=== PATIENT | male | born 1950 | race African-American/Black ===

== ENCOUNTER 2020-05-07 05:33 | Emergency (ER) | payer OTHER ==
[~2020-05-07] VITALS: Ht 185.4 cm; Wt 77.0 kg
[2020-05-07 10:28] VITALS: BP 143/78
== END 2020-05-07 11:08 | disposition home or self-care (01) ==
LOC: ER 05:33
DX: Z04.89 Encounter for examination and observation for other specified reasons (principal); I69.320 Aphasia following cerebral infarction; I10 Essential (primary) hypertension; Z93.0 Tracheostomy status; Z93.3 Colostomy status
CPT/HCPCS: 99283

== ENCOUNTER 2022-01-05 12:30 | Emergency (ER) | payer OTHER ==
[~2022-01-05] VITALS: Ht 172.7 cm; Wt 90.7 kg
[2022-01-05] MEDS ORDERED: CEFTRIAXONE 1 G PREMIX 50 ML IV ONE (13:30)
[2022-01-05] MEDS ORDERED: VANCOMYCIN 1G PREMIX 200 ML IV SCH (13:30)
[2022-01-05] MEDS ORDERED: ACETAMINOPHEN 650MG SUPP PR ONE (13:30)
[2022-01-05] MEDS ORDERED: SODIUM CHLORIDE 0.9% 1,000 ML IV ONE (13:45)
[2022-01-05 14:50] LABS: CHLORIDE 108 mEq/L (98-107)
[2022-01-05 14:52] LABS: HEMATOCRIT. 31.3 % (42.0-52.0); MEAN CORPUSCULAR HEMOGLOBIN 32.9 pg (28.0-32.0); MEAN CORPUSCULAR VOLUME 103.1 fL (80.0-94.0); MEAN PLATELET VOLUME 8.4 fl (7.4-10.4); PLATELET 147 x1000/uL (130-400); RED BLOOD CELL COUNT 3.03 mill/uL (4.7-6.1); RED CELL DISTRIBUTION WIDTH 12.4 % (11.6-14.6)
[2022-01-05] MEDS ORDERED: CEFTRIAXONE 1 G PREMIX 50 ML IV NR (15:15)
[2022-01-05] MEDS ORDERED: VANCOMYCIN 1GM PMX (XELLIA) 200 ML IV NR (15:30)
[2022-01-05 16:55] LABS: CLARITY URINE TURBID (CLEAR); COLOR URINE YELLOW (YELLOW); KETONES URINE TRACE (NEGATIVE); LEUKOCYTE ESTERASE URINE 3+ (NEGATIVE); NITRITE URINE POSITIVE (NEGATIVE); OCCULT BLOOD URINE NEGATIVE (NEGATIVE); PROTEIN URINE 1+ (NEGATIVE); SPECIFIC GRAVITY URINE 1.019 (1.005-1.030)
[2022-01-05 18:01] LABS: PLATELET ESTIMATE NORMAL
[2022-01-05 18:41] VITALS: BP 162/70
== END 2022-01-05 19:03 | disposition short-term general hospital (02) ==
LOC: ER 12:30 → CANBEDREQ 19:59
DX: A41.9 Sepsis, unspecified organism (principal); R65.20 Severe sepsis without septic shock; N39.0 Urinary tract infection, site not specified; I10 Essential (primary) hypertension; Z20.822 Contact with and (suspected) exposure to COVID-19; Z90.49 Acquired absence of other specified parts of digestive tract; Z86.73 Personal history of transient ischemic attack (TIA), and cerebral infarction without residual deficits
CPT/HCPCS: 36415; 71045; 80053; 81003; 83605; 83690; 83880; 84484; 85025; 87040; 87077; 87086; 87186; 87426; 93005; 96361; 96365; 96366; 96368; 99285; C9803; J0696; J3370; J7030

== ENCOUNTER 2022-07-03 10:41 | Emergency (ER) | payer OTHER ==
[~2022-07-03] VITALS: Ht 167.6 cm; Wt 69.0 kg
[2022-07-03 16:00] VITALS: BP 133/60
== END 2022-07-03 17:22 | disposition home or self-care (01) ==
LOC: ER 10:41
DX: J95.03 Malfunction of tracheostomy stoma (principal); I10 Essential (primary) hypertension; Z86.73 Personal history of transient ischemic attack (TIA), and cerebral infarction without residual deficits
CPT/HCPCS: 32551; 71045; 99283; 99284

== ENCOUNTER 2024-12-14 23:40 | Inpatient (IN) | payer OTHER ==
[~2024-12-14] VITALS: Ht 180.3 cm; Wt 69.9 kg
[2024-12-15] VITALS (9 sets, daily range): BP systolic 124–150; BP diastolic 66–86; PULSE 64–80; RESP 15–22; TEMP 36.4–37.0296; O2SAT 96–99
[2024-12-15] MEDS ORDERED: VANCOMYCIN 1G PREMIX 200 ML IV ONE (01:00)
[2024-12-15 01:18] LABS: BG BASE EXCESS 3.2 mmol/L (-2.0-3.0); BG CARBOXYHEMOGLOBIN 0.8 % (0.5-1.5); BG DEOXYHEMOGLOBIN 6.4 % (0.0-5.0); BG HCO3 ACT 28.4 mmol/L (21.0-28.0); BG METHEMOGLOBIN 0.0 % (0.5-1.5); BG OXYGEN SATURATION 93.5 % (94.0-98.0); BG OXYHEMOGLOBIN 92.8 % (94.0-98.0); BG PCO2 45.7 mmHg (35.0-48.0); BG PH 7.412 (7.350-7.450); BG PO2 68.3 mmHg (83.0-108.0); BG SAMPLE SITE RIGHT RADIAL; BG TOTAL HEMOGLOBIN 13.9 g/dL (13.5-17.5); BG VENT MODE ROOM AIR
[2024-12-15] MEDS: SODIUM CHLORIDE 0.9% (SEPSIS BOLUS) IV ONE (02:12)
[2024-12-15] MEDS: PIPERACILLIN/TAZO 3.375G/50ML 50 ML IV ONE (02:13)
[2024-12-15 02:24] LABS: BASOPHILS % 0.2 % (0.0-2.0); EOSINOPHILS % 1.5 % (0.0-5.0); HEMATOCRIT. 41.4 % (42.0-52.0); HEMOGLOBIN. 13.9 g/dL (14.0-18.0); LYMPHOCYTES % 16.9 % (20.0-50.0); MEAN PLATELET VOLUME 9.4 fl (7.4-10.4); MONOCYTES % 2.9 % (2.0-8.0); NEUTROPHILS % 78.5 % (40.0-76.0); PLATELET 132 x1000/uL (130-400); RED BLOOD CELL COUNT 4.37 mill/uL (4.7-6.1); RED CELL DISTRIBUTION WIDTH 12.6 % (11.6-14.6)
[2024-12-15 03:11] LABS: CREATININE 1.1 mg/dL (0.6-1.3); TROPONIN I HIGH SENSITIVITY 8 ng/L (3.0-53); UREA NITROGEN BLOOD 17 mg/dL (9-23)
[2024-12-15 03:13] LABS: ASPARTATE AMINOTRANSFERASE 25 IU/L (<34); BILIRUBIN DIRECT 0.2 mg/dL (<=3.0); BILIRUBIN TOTAL 0.5 mg/dL (0.1-1.0); PROTEIN TOTAL 9.7 g/dL (6.0-8.3)
[2024-12-15] MEDS: VANCOMYCIN 1G PREMIX 200 ML IV NR (05:02)
[2024-12-15] MEDS ORDERED: LEVE1000 PO (06:56)
[2024-12-15] MEDS ORDERED: ATEN100T PO (06:56)
[2024-12-15] MEDS ORDERED: HYDR100T11 PO (06:56)
[2024-12-15] MEDS ORDERED: GLYC2TAB21 MT (06:56)
[2024-12-15] MEDS ORDERED: AMLO10TA80 PO (06:56)
[2024-12-15] MEDS ORDERED: ACETAMINOPHEN 650MG/20.3ML UDC PO PRN (07:00)
[2024-12-15] MEDS: LEVETIRACETAM 500MG/5ML CUP PO SCH (08:47)
[2024-12-15] MEDS: HYDRALAZINE HCL 100MG TABLET PO SCH (08:47)
[2024-12-15] MEDS: ATENOLOL 50 MG TABLET PO SCH (08:47)
[2024-12-15] MEDS: AMLODIPINE 10MG TABLET PO SCH (08:48)
[2024-12-15] MEDS: IPRATROPIUM/ALBUTEROL 0.5-3(2.5)MG/3ML NEB HHN SCH (12:43)
[2024-12-15] MEDS: GLYCOPYRROLATE 1MG TABLET PO SCH (12:46)
[2024-12-15] MEDS ORDERED: GLYCOPYRROLATE 1MG TABLET PO SCH (22:00)
[2024-12-16] VITALS (12 sets, daily range): BP systolic 123–143; BP diastolic 60–97; PULSE 71–80; RESP 16–20; TEMP 36.5–38.3; O2SAT 97–99
[2024-12-16] MEDS: AZITHROMYCIN 500MG/250ML 250 ML IV SCH (15:23)
[2024-12-16] MEDS: CEFTRIAXONE 1GM/50ML 50 ML IV SCH (15:23)
== END 2024-12-16 22:19 | disposition short-term general hospital (02) | DRG 391 ==
LOC: ER 23:49 → 8WST 12-15 03:28 → EDBEDREQSVC 12-15 03:47 → EDBEDREQ 12-15 03:47 → EDBEDREQTM 12-15 03:47 → ENRESERV 12-15 03:50
PROVIDERS: ADMIT Internal Medicine; ATTEND Internal Medicine
DX: K52.9 Noninfective gastroenteritis and colitis, unspecified (principal); G82.50 Quadriplegia, unspecified; J18.9 Pneumonia, unspecified organism; I10 Essential (primary) hypertension; I69.320 Aphasia following cerebral infarction; Z93.0 Tracheostomy status; Z93.3 Colostomy status; Z74.01 Bed confinement status; I69.365 Other paralytic syndrome following cerebral infarction, bilateral
CPT/HCPCS: 31720; 36415; 36600; 71045; 74176; 80048; 80076; 82375; 82805; 83605; 84145; 84484; 85025; 94070; 94640; 96365; 99291; J0456; J0696; J2543; J3370; J7030